=== PATIENT | female | born 1970 | race Caucasian/White ===

== ENCOUNTER 2017-02-01 17:07 | Emergency (ER) | payer BC ==
[~2017-02-01] VITALS: Ht 175.3 cm; Wt 65.8 kg
[2017-02-01 17:10] VITALS: BP 100/73; PULSE 76; RESP 18; TEMP 97.6; O2SAT 97
--- NOTE | 2017-02-01 17:10 | NUR ---
Patient to ER bed 6 to gown for evaluation. Side rails up. Report given to Ute HINES.
--- NOTE | 2017-02-01 17:25 | NUR ---
Patient came in stable condition and ambulatory. Patient states that she has sinus pressure and the pain was too bad. Patient states she has a headache pain 08/03. No other complaints/injuries by patient or noted. Addendum: 02/01/17 at 1840 by [email or web address] "Sinus pressure" to mid forehead per patient that began three days ago. Saw primary doctor today and was prescribed prednisone and zithromax.
--- NOTE | 2017-02-01 17:34 | NUR ---
ER Dr. Kramer at bedside examining patient.
[2017-02-01] MEDS ORDERED: KETOROLAC TROMETHAMINE 60 MG/2 ML VIAL IM ONE (17:45)
[2017-02-01] MEDS ORDERED: ONDANSETRON 4 MG ODT TAB PO ONE (17:45)
[2017-02-01 18:21] VITALS: BP 107/57; PULSE 67; RESP 16; TEMP 98; O2SAT 97
--- NOTE | 2017-02-01 18:21 | NUR ---
Patient given written and verbal discharge instructions and verbalizes understanding. ER MD discussed with patient the results and treatment provided. Patient in stable condition. ID arm band removed. Rx of Motrin, Cefdinir, Mucinex, and Zofran given. Patient to discontinue Prednison and azithyromax per Dr. Kramer. Patient educated on pain management and to follow up with PMD in 3 to 5 days. Pain Scale 0/10 Opportunity for questions provided and answered. Addendum: 02/01/17 at 1842 by [email or web address] zithromax
== END 2017-02-01 18:21 | disposition home or self-care (01) ==
LOC: SED 17:07
DX: J32.9 Chronic sinusitis, unspecified (principal); R11.10 Vomiting, unspecified; G43.909 Migraine, unspecified, not intractable, without status migrainosus; Z88.1 Allergy status to other antibiotic agents
CPT/HCPCS: 81025; 96372; 99283; J1885; Q0162